=== PATIENT | female | born 1970 | race Caucasian/White ===

== ENCOUNTER 2016-04-24 13:07 | Inpatient (IN) ==
--- NOTE | 2016-04-24 13:41 | Emergency Department Note ---
Disposition Clinical Impression: Suicidal ideation Depression Qualifiers: Depression Type: unspecified Qualified Code(s): F32.9 - Major depressive disorder, single episode, unspecified Disposition: Admitted As Inpatient Condition: Good Referrals: NO,PCP [Primary Care Provider] - Forms: ED Satisfaction Letter Time of Disposition: 16:30 Psych HPI - General Chief Complaint: ED Psychiatric Symptoms Stated Complaint: SI Time Seen by Provider: 04/24/16 13:20 Source: patient, family Mode of arrival: ambulatory Limitations: no limitations Nursing Notes Reviewed: Yes Vital Signs Reviewed: Yes - History of Present Illness HPI Narrative: Patient presents to the emergency department complaining of depression and increased suicidal thoughts over the past month. She cites the clamp it as going through a divorce. She complains of substernal chest discomfort over the past 1 month. She denies other physical symptoms. She is taking antidepressants as prescribed by her primary care physician. No previous history of depression otherwise Pt complaint: suicidal ideation, feels depressed Onset (ago): month(s) Duration: constant History of similar episodes: No Improves with: none Worsens with: none Alleged intoxication: No Associated Psychiatric Symptoms: depression, suicidal ideation Traumatic symptoms: denies traumatic injury Treatments prior to arrival: none Self harm or harm to others: admits thoughts of self harm - Related Data Allergies Allergy/AdvReac Type Severity Reaction Status Date / Time Sulfa (Sulfonamide Allergy Hives Verified 04/24/16 13:09 Antibiotics) All systems ED: reviewed and negative except as stated. Constitutional: Reports: as per HPI Eyes: Reports: as per HPI ENT ED: Reports: as per HPI Cardiovascular: Reports: chest pain Respiratory: Reports: as per HPI Gastrointestinal: Reports: as per HPI Genitourinary: Reports: as per HPI Musculoskeletal: Reports: as per HPI Integumentary: Reports: as per HPI Neurological: Reports: as per HPI Psychiatric: Reports: depression, suicidal thoughts Endocrine: Reports: as per HPI Hematological/Lymphatic: Reports: as per HPI Allergic/Immunologic: Reports: as per HPI Past Medical History - Past Medical History Source: patient Medical history: Reports: thyroid disease Psychiatric history: Reports: anxiety, depression - Social History Smoking Status: Never smoker Smokeless Tobacco Status: No Alcohol use: Reports: none Drug use: Reports: none Physical Exam teary - General Limitations: no limitations General appearance: alert, in no apparent distress - Head Head exam: atraumatic - Eye Eye exam: Present: normal appearance - ENT ENT exam: normal exam - Neck Neck exam: Present: normal inspection - Chest Chest inspection: Present: normal inspection, symmetric chest wall rise - Respiratory Respiratory exam: Present: normal lung sounds bilaterally - Cardiovascular Cardiovascular exam: Present: normal rhythm, tachycardia, normal heart sounds - Rectal Exam Rectal exam: Present: deferred - Extremities Exam Extremities exam: Present: normal inspection - Neurological Exam Neurological exam: Present: alert, oriented X3, CN II-XII intact - Psychiatric Psychiatric exam: Present: depressed - Skin Skin exam: Present: warm, dry, intact Course Course Narrative: Patient presents the emergency department feeling depressed and suicidal. She complains of chest pain. I will attempt to clear her medically for behavioral evaluation - Reevaluation(s) Reevaluation #1: 1A accepts admission Vital Signs Temperature 98.1 F 04/24/16 13:09 Pulse Rate 104 04/24/16 13:09 Respiratory Rate 16 04/24/16 13:09 Blood Pressure 137/91 04/24/16 13:09 O2 Sat by Pulse Oximetry 97 04/24/16 13:09 Temperature 98.1 F 04/24/16 13:09 Pulse Rate 104 04/24/16 13:09 Respiratory Rate 16 04/24/16 13:09 Blood Pressure 137/91 04/24/16 13:09 O2 Sat by Pulse Oximetry 97 04/24/16 13:09 Oxygen Delivery Oxygen Delivery Room Air Psych - Lab Data Lab results reviewed: Yes I reviewed the patient's lab results. Result diagrams: 04/24/16 13:43 04/24/16 13:43 Lab Results 04/24/16 04/24/16 04/24/16 Range/Units 13:43 13:43 13:44 WBC 7.4 (4.3-11.1) K/mcL RBC 4.74 (3.82-4.97) M/mcL Hgb 11.9 (11.5-15.4) g/dL Hct 39.1 (35.3-44.9) % MCV 82.5 L (83.0-100.0) fL MCH 25.1 L (28.0-33.3) pg MCHC 30.4 L (31.6-35.5) g/dL RDW 16.0 H (11.5-14.5) % Plt Count 416 H (140-400) K/mcL MPV 8.7 L (9.4-12.4) fL Immature Gran % 0.4 (0-4) % Seg Neutrophils % 65.6 % Lymphocytes % 23.9 % Monocytes % 7.8 % Eosinophils % 0.8 % Basophils % 1.5 % Neutrophils # 4.8 (1.6-8.9) K/mcL Lymphocytes # 1.8 (0.6-4.6) K/mcL Monocytes # 0.6 (0.0-1.3) K/mcL Eosinophils # 0.1 (0.0-0.6) K/mcL Basophils # 0.1 (0.0-0.2) K/mcL Sodium 138 (136-145) mEq/L Potassium 4.1 (3.5-4.5) mEq/L Chloride 103 (98-109) mEq/L Carbon Dioxide 25 (19-29) mEq/L BUN 7 (7-20) mg/dL Creatinine 0.74 (0.57-1.11) mg/dL Est GFR ( Amer) > 60 (> 60) Est GFR (Non-Af Amer) > 60 (> 60) BUN/Creatinine Ratio 9 (6-26) Glucose 94 (70-99) mg/dL Calculated Osmolality 284 (280-300) Calcium 9.6 (8.6-10.8) mg/dL Troponin I 0.00 (0-0.03) ng/mL Urine Color (Yellow) Urine Clarity (Clear) Urine pH (5.0-8.0) pH Units Ur Specific [place] (1.010-1.025) Urine Protein (Neg-Trace) mg/dL Urine Glucose (UA) (Normal) mg/dL Urine Ketones (Negative) mg/dL Urine Blood (Negative) Urine Nitrite (Negative) Urine Bilirubin (Negative) Urine Urobilinogen (Normal) mg/dL Ur Leukocyte Esterase (Negative) Urine Microscopic RBC (0-3) per hpf Urine Microscopic WBC (0-3) per hpf Ur Squamous Epith Cells (None-Few) per lpf Urine Bacteria (None-Few) per hpf Hyaline Casts (None-Few) per lpf Urine Test (Negative) Salicylates < 5.0 L (15-30) mg/dL Urine Opiates Screen (Hsfigz=497) ng/mL Acetaminophen < 1.0 L (10-30) mcg/mL Ur Barbiturates Screen (Uloenh=905) ng/mL Ur Phencyclidine Scrn (Cutoff=25) ng/mL Ur Amphetamines Screen (Ybjdzf=4846) ng/mL U Benzodiazepines Scrn (Hkdvqz=423) ng/mL Urine Cocaine Screen (Cutoff= 300) ng/mL U Marijuana (THC) Screen (Cutoff = 50) ng/mL Ethyl Alcohol < 10 (0-10) mg/dL 04/24/16 04/24/16 04/24/16 Range/Units 13:50 13:50 13:50 WBC (4.3-11.1) K/mcL RBC (3.82-4.97) M/mcL Hgb (11.5-15.4) g/dL Hct (35.3-44.9) % MCV (83.0-100.0) fL MCH (28.0-33.3) pg MCHC (31.6-35.5) g/dL RDW (11.5-14.5) % Plt Count (140-400) K/mcL MPV (9.4-12.4) fL Immature Gran % (0-4) % Seg Neutrophils % % Lymphocytes % % Monocytes % % Eosinophils % % Basophils % % Neutrophils # (1.6-8.9) K/mcL Lymphocytes # (0.6-4.6) K/mcL Monocytes # (0.0-1.3) K/mcL Eosinophils # (0.0-0.6) K/mcL Basophils # (0.0-0.2) K/mcL Sodium (136-145) mEq/L Potassium (3.5-4.5) mEq/L Chloride (98-109) mEq/L Carbon Dioxide (19-29) mEq/L BUN (7-20) mg/dL Creatinine (0.57-1.11) mg/dL Est GFR ( Amer) (> 60) Est GFR (Non-Af Amer) (> 60) BUN/Creatinine Ratio (6-26) Glucose (70-99) mg/dL Calculated Osmolality (280-300) Calcium (8.6-10.8) mg/dL Troponin I (0-0.03) ng/mL Urine Color Yellow (Yellow) Urine Clarity Cloudy A (Clear) Urine pH 7.0 (5.0-8.0) pH Units Ur Specific [place] 1.011 (1.010-1.025) Urine Protein Negative (Neg-Trace) mg/dL Urine Glucose (UA) Normal (Normal) mg/dL Urine Ketones Negative (Negative) mg/dL Urine Blood Negative (Negative) Urine Nitrite Negative (Negative) Urine Bilirubin Negative (Negative) Urine Urobilinogen Normal (Normal) mg/dL Ur Leukocyte Esterase Trace H (Negative) Urine Microscopic RBC 3-5 H (0-3) per hpf Urine Microscopic WBC 15-30 H (0-3) per hpf Ur Squamous Epith Cells Many H (None-Few) per lpf Urine Bacteria Few (None-Few) per hpf Hyaline Casts None Seen (None-Few) per lpf Urine Test Negative (Negative) Salicylates (15-30) mg/dL Urine Opiates Screen Negative (Mkjeyc=564) ng/mL Acetaminophen (10-30) mcg/mL Ur Barbiturates Screen Negative (Rmllbk=424) ng/mL Ur Phencyclidine Scrn Negative (Cutoff=25) ng/mL Ur Amphetamines Screen Negative (Kprytn=6169) ng/mL U Benzodiazepines Scrn Negative (Uhfyiw=092) ng/mL Urine Cocaine Screen Negative (Cutoff= 300) ng/mL U Marijuana (THC) Screen Negative (Cutoff = 50) ng/mL Ethyl Alcohol (0-10) mg/dL - EKG Data EKG attestation: Yes I reviewed and interpreted this EKG. EKG results narrative: Normal sinus rhythm at 84 bpm NH 144 QRS 94 QT/QTC 360/41. LVH. Psychiatric Medical Clearance - Medical Clearance Checklist Medical History: No Social History Section defined Current Vitals: Last Vital Signs Temp 98.1 F 04/24/16 13:09 Pulse 104 04/24/16 13:09 Resp 16 04/24/16 13:09 BP 137/91 04/24/16 13:09 Pulse Ox 97 04/24/16 13:09 Psychiatric Lab Panel: Drug Levels and Toxicity 04/24/16 04/24/16 13:43 13:50 Urine Opiates Screen Negative Acetaminophen < 1.0 L Ur Barbiturates Screen Negative Ur Phencyclidine Scrn Negative Ur Amphetamines Screen Negative U Benzodiazepines Scrn Negative Urine Cocaine Screen Negative U Marijuana (THC) Screen Negative Ethyl Alcohol < 10 Abnormal Labs: Abnormal lab results MCV 82.5 fL (83.0-100.0) L 04/24/16 13:43 MCH 25.1 pg (28.0-33.3) L 04/24/16 13:43 MCHC 30.4 g/dL (31.6-35.5) L 04/24/16 13:43 RDW 16.0 % (11.5-14.5) H 04/24/16 13:43 Plt Count 416 K/mcL (140-400) H 04/24/16 13:43 MPV 8.7 fL (9.4-12.4) L 04/24/16 13:43 Urine Clarity Cloudy (Clear) A 04/24/16 13:50 Ur Leukocyte Esterase Trace (Negative) H 04/24/16 13:50 Urine Microscopic RBC 3-5 per hpf (0-3) H 04/24/16 13:50 Urine Microscopic WBC 15-30 per hpf (0-3) H 04/24/16 13:50 Ur Squamous Epith Cells Many per lpf (None-Few) H 04/24/16 13:50 Salicylates < 5.0 mg/dL (15-30) L 04/24/16 13:43 Acetaminophen < 1.0 mcg/mL (10-30) L 04/24/16 13:43 Statement of Medical Clearance: I have evaluated the patient, reviewed diagnostic information, and certify that the patient's medical condition is sufficiently stable that transfer to the psychiatric unit does not pose a significant risk of deterioration.
[2016-04-24 13:50] LABS: Basophils # 0.1 K/mcL (0.0-0.2); Basophils % 1.5 %; Eosinophils # 0.1 K/mcL (0.0-0.6); Eosinophils % 0.8 %; Hematocrit 39.1 % (35.3-44.9); Hemoglobin 11.9 g/dL (11.5-15.4); Immature Granulocytes % 0.4 % (0-4); Lymphocytes # 1.8 K/mcL (0.6-4.6); Lymphocytes % 23.9 %; Mean Corpuscular HGB Conc 30.4 g/dL (31.6-35.5); Mean Corpuscular Hemoglobin 25.1 pg (28.0-33.3); Mean Corpuscular Volume 82.5 fL (83.0-100.0); Mean Platelet Volume 8.7 fL (9.4-12.4); Monocytes # 0.6 K/mcL (0.0-1.3); Monocytes % 7.8 %; Neutrophils # 4.8 K/mcL (1.6-8.9); Platelet Count 416 K/mcL (140-400); Red Blood Count 4.74 M/mcL (3.82-4.97); Segmented Neutrophils % 65.6 %
[2016-04-24 14:05] LABS: BUN/Creatinine Ratio 9 (6-26); Blood Urea Nitrogen 7 mg/dL (7-20); Calcium 9.6 mg/dL (8.6-10.8); Carbon Dioxide 25 mEq/L (19-29); Chloride 103 mEq/L (98-109); Glucose 94 mg/dL (70-99); Osmolality,Calculated 284 (280-300); Potassium 4.1 mEq/L (3.5-4.5); Sodium 138 mEq/L (136-145); eGFR For African Americans > 60 (> 60); eGFR For Non-African Americans > 60 (> 60)
[2016-04-24 14:06] LABS: Acetaminophen < 1.0 mcg/mL (10-30); Ethanol < 10 mg/dL (0-10); Salicylate < 5.0 mg/dL (15-30)
[2016-04-24 14:11] LABS: Bilirubin,Urine Negative (Negative); Blood,Urine Negative (Negative); Clarity,Urine Cloudy (Clear); Color,Urine Yellow (Yellow); Glucose,Urine (UA) Normal (Normal); Ketones,Urine Negative (Negative); Leukocyte Esterase,Urine Trace (Negative); Nitrite,Urine Negative (Negative); Protein,Urine Negative (Neg-Trace); Specific Gravity,Urine 1.011 (1.010-1.025); Urobilinogen,Urine Normal (Normal)
[2016-04-24 14:14] LABS: Amphetamine Screen,Urine Negative ng/mL (Cutoff=1000); Bacteria,Urine Few per hpf (None-Few); Barbiturate Screen,Urine Negative ng/mL (Cutoff=200); Benzodiazepines Screen,Urine Negative ng/mL (Cutoff=200); Cannabinoid Screen,Urine Negative ng/mL (Cutoff = 50); Cocaine Screen,Urine Negative ng/mL (Cutoff= 300); Hyaline Casts,Urine None Seen per lpf (None-Few); Opiate Screen,Urine Negative ng/mL (Cutoff=300); Phencyclidine Screen,Urine Negative ng/mL (Cutoff=25); Squamous Epithelial Cell,Urine Many per lpf (None-Few); WBC,Urine 15-30 per hpf (0-3)
[2016-04-24] MEDS ORDERED: MOM Conc 10 ML UD.LIQ PO PRN (21:16)
[2016-04-24] MEDS ORDERED: Haloperidol Lactate 5 MG/ML VIAL IM PRN (21:16)
[2016-04-24] MEDS ORDERED: Mag Hydrox/Al Hydrox/Simeth 30 ML UDC PO PRN (21:16)
[2016-04-24] MEDS ORDERED: *HR* LORazepam 2 MG/ML VIAL IM PRN (21:16)
[2016-04-24] MEDS ORDERED: Ibuprofen 400 MG TABLET PO PRN (21:16)
[2016-04-24] MEDS ORDERED: *HR* LORazepam 1 MG TABLET PO PRN (21:16)
[2016-04-25] MEDS: traZODone 50 MG TABLET PO PRN ×2 (00:37→20:42)
[2016-04-25] MEDS: BuPROPion XL (24 HR) 150 MG TABLET PO SCH (08:30)
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
[2016-04-25] MEDS ORDERED: FLUoxetine 20 MG CAPSULE PO SCH (18:00)
[2016-04-25] MEDS: hydrOXYzine pamoate 25 MG CAPSULE PO PRN (23:39)
[2016-04-26] MEDS: BuPROPion XL (24 HR) 150 MG TABLET PO SCH (08:51)
--- NOTE | 2016-04-26 11:54 | Psychiatry Progress Note ---
Date of Encounter: 04/26/16 Time of Encounter: 11:35 Subjective Interval history: Patient seen and interviewed. He started to notice improvement in her mood. Suicidal ideations of started to subside. Still endorsing some hopeless and helpless feelings. Attending groups and participating in activities learning coping skills and is working on a safety plan. Tolerating meds changes fairly well did not report any side effects. Overall making progress. Review of Systems Psychiatric: Reports: depression Objective: Exam Patient orientation: Yes Person, Yes Time, Yes Place, Yes Circumstance Level of alertness: Alert Patient appearance: Appropriate, Well Groomed Behavior: calm Psychomotor activity: Slowed Eye contact: Maintains Eye Contact Mood description: Depressed Affect description: constricted Speech pattern: Normal rate, Normal rhythm, Normal tone Speech volume: Normal Thought process: Linear, Goal Oriented Thought content: No Suicidal ideation, No Homicidal ideation, No Overt delusions Perceptual disturbances: No Auditory hallucinations, No Visual hallucinations Judgment: Limited Insight: Partial Results - Vital Signs Vital Signs: Temp Pulse Resp BP Pulse Ox 98.6 F 88 16 116/82 98 04/26/16 09:00 04/26/16 09:00 04/26/16 09:00 04/26/16 09:00 04/24/16 17:30 Assessment and Plan (1) MDD (major depressive disorder), recurrent severe, without psychosis Current visit: Yes Status: Acute Plan: Continue hospitalization, Close observation, Suicide Precautions per unit protocol, Encourage participation in unit milieu, Group Therapy, Monitor sleep, Monitor appetite Additional Plan: Making progress. Possible discharge tomorrow Risks, benefits, side effects, alternatives discussed w/pt: Yes Patient agreeable to treatment: Yes Consult Discharge Plan - Plan Referrals: NO,PCP [Primary Care Provider] -
--- NOTE | 2016-04-26 20:13 | Electrocardiograph Report ---
[place] [id number] Test Date: 2016-04-24 Pat Name: Mitzy Urena Department: 105 Room: 1A21 Gender: F Abstract Clerk: : 1970 Requested By: Rafa Salomon Order Number: [id number] Reading MD: Mychal Sharp DO Measurements Intervals Basom Rate: 84 P: 31 CT: 144 QRS: -6 QRSD: 94 T: 29 QT: 360 QTc: 401 Interpretive Statements SINUS RHYTHM Electronically Signed On 04-26-2016 20:11:53 EST by Mychal Sharp DO
[2016-04-26] MEDS: traZODone 50 MG TABLET PO PRN (20:53)
[2016-04-26] MEDS: hydrOXYzine pamoate 25 MG CAPSULE PO PRN (23:19)
[2016-04-27 08:42] VITALS: BP 131/78
[2016-04-27] MEDS: BuPROPion XL (24 HR) 150 MG TABLET PO SCH (08:52)
--- NOTE | 2016-04-27 10:10 | Discharge Summary ---
Date of Encounter: 04/27/16 Time of Encounter: 10:06 Diagnosis - Discharge Diagnosis (1) MDD (major depressive disorder), recurrent severe, without psychosis Priority: Primary Status: Acute (2) Suicidal ideation Priority: Secondary Status: Acute Medications - Discharge Medications Prescriptions: BuPROPion XL (24 HR) [Wellbutrin Xl] 150 mg PO QAM #30 tab.er.24h Sertraline [Zoloft] 50 mg PO DAILY #30 tablet Levothyroxine [Synthroid] 75 mcg PO QAM 04/24/16 [History] Omeprazole [PriLOSEC] 20 mg PO DAILY 04/24/16 [History] BuPROPion XL (24 HR) [Wellbutrin Xl] 150 mg PO QAM #30 tab.er.24h 04/27/16 [Rx] Sertraline [Zoloft] 50 mg PO DAILY #30 tablet 04/27/16 [Rx] Allergies Sulfa (Sulfonamide Antibiotics) Allergy (Verified 04/24/16 13:09) Hives Provider Date of admission: 04/24/16 20:10 Primary care physician: PCP JUVE Discharging clinician: Donovan Rodney Assessment and Plan - Patient/Caregiver Discharge Instructions Activity: resume usual activities as tolerated Diet: regular diet - Follow up Plan Follow up with: NO,PCP [Primary Care Provider] - Functional capacity at discharge: independent ambulation Overall status at discharge: Stable Disposition: Home, Self-Care Hospital Course Hospital course: Ms. Urena is a 45 year old female admitted from the emergency room for suicidal ideation after her left her. This is the first psychiatric admission for this patient. She had no outpatient treatment. On admission her medication review at and fluoxetine was discontinued and was started on sertraline in addition to Wellbutrin. Patient responded well to medication participated in groups and prior to discharge denies suicidal ideation and was future oriented and looking forward to go back to work and to see his therapist as patient work on her life and marital issues. She was medically stable and ready for discharge. - Time Spent with Patient Total time spent providing and/or coordinating discharge services: Less than 30 minutes Quality - Multiple Antipsychotics Patient discharged on 2 or more antipsychotic medications: No Procedures - Procedures Procedures: Medication Management, Crisis Stabilization, Supportive Therapy, Group Therapy, Psychoeducational Therapy Mental Status Exam - Mental Status Exam Patient orientation: Yes Person, Yes Time, Yes Place, Yes Circumstance Level of alertness: Alert Patient appearance: Appropriate, Well Groomed Behavior: calm Psychomotor activity: Slowed Eye contact: Maintains Eye Contact Mood description: Depressed Affect description: constricted Speech pattern: Normal rate, Normal rhythm, Normal tone Speech Volume: Normal Thought process: Linear, Goal Oriented Thought Content: No Suicidal ideation, No Homicidal ideation, No Overt delusions Perceptual Disturbances: No Auditory hallucinations, No Visual hallucinations Judgment: Good Insight: Partial
[2016-04-27] MEDS ORDERED: FLU VACC QS2016-17 36MOS UP/PF 0.5 ML SYRINGE IM ONE (11:19)
== END 2016-04-27 12:00 | disposition home or self-care (01) | DRG 885 ==
LOC: EMEROO 13:07 → 1ANU 20:01 → SUATTDRO 20:10
PROVIDERS: ADMIT Psychiatry & Neurology Psychiatry; ATTEND Psychiatry & Neurology Psychiatry